=== PATIENT | male | born 1970 | race Caucasian/White ===

== ENCOUNTER 2022-06-29 04:06 | Day surgery (SDC) | payer OTHER ==
[2022-06-25 11:20] VITALS: BMI 30.5
[2022-06-29 10:37] VITALS: TEMP 97.7
[2022-06-29 11:31] VITALS: BP 112/62; PULSE 78; RESP 14
== END 2022-06-29 11:09 | disposition home or self-care (01) ==
LOC: JASU-ENDO 04:06
PROVIDERS: ATTEND Internal Medicine Gastroenterology
PROC: 0DBP8ZX Excision of Rectum, Via Natural or Artificial Opening Endoscopic, Diagnostic (ICD-10-PCS; principal; 2022-06-29 09:45)
DX: Z12.11 Encounter for screening for malignant neoplasm of colon (principal); D37.9 Neoplasm of uncertain behavior of digestive organ, unspecified; D12.9 Benign neoplasm of anus and anal canal; K64.8 Other hemorrhoids; E11.9 Type 2 diabetes mellitus without complications; Z79.84 Long term (current) use of oral hypoglycemic drugs
CPT/HCPCS: 82962; 88305-TC; 88342-TC